=== PATIENT | male | born 1970 | race Caucasian/White ===

== ENCOUNTER 2018-08-16 01:20 | Inpatient (IN) | payer MEDICAID, OTHER ==
[~2018-08-16] VITALS: Ht 193 cm; Wt 117.2 kg
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
--- NOTE | 2018-08-16 01:42 | NUR ---
PT. WAS TOLD BY SECURITY THAT HE NEEDS TO EITHER GET HIS STUFF AND LEAVE OR GO BACK TO THE ROOM. PT. AMBULATORY BACK TO ED ROOM 38. PT. STATES "YOU ALL BETTER KNOW WHO YOU'RE TALKING TO, I CAME HERE FOR SOME RESPECT." PT. SITTING ON GURNEY NOW AWAITING PROVIDER AUNDREA.
--- NOTE | 2018-08-16 01:48 | NUR ---
DONI YUSUF IN TO EVAL PT. AND DISCUSS POC.
--- NOTE | 2018-08-16 02:13 | NUR ---
US AT FOR IMAGING. PT. CALLED RN INTO ROOM AND STATES "YOU NEED TO BRING ME A TELEPHONE IMMEDIATLY, IT'S IMPORTANT!" RN INFROMED PT. THAT THERE IS NO PHONE TO BRING INTO ROOM. PT. REPORTS HE WILL WAIT UNITL IMAGING COMPLETED AND USE PHONE IN [place]. ROSE.
[2018-08-16 02:17] LABS: BASOPHILS % (AUTO) 1 % (0-1); EOSINOPHILS # (AUTO) 0.14 x10^3/uL (0-0.4); EOSINOPHILS % (AUTO) 1 % (1-7); LYMPHOCYTES # (AUTO) 1.97 x10^3/uL (1-3.4); LYMPHOCYTES % (AUTO) 11 % (22-44); MD NO; MEAN CORPUSCULAR HEMOGLOBIN 31.4 pg (27.5-34.5); MEAN CORPUSCULAR HGB CONC 34.3 g/dL (33.2-36.2); MEAN CORPUSCULAR VOLUME 91.4 fL (81-97); MEAN PLATELET VOLUME 7.8 fL (7.4-10.4); MONOCYTES # (AUTO) 1.23 x10^3/uL (0.2-0.8); MONOCYTES % (AUTO) 7 % (2-9); NEUTROPHILS # (AUTO) 14.46 x10^3/uL (1.8-6.8); NEUTROPHILS % (AUTO) 81 % (42-75); PLATELET COUNT 273 x10^3/uL (130-400); RED BLOOD COUNT 5.11 x10^6/uL (4.38-5.82); RED CELL DISTRIBUTION WIDTH 12.7 % (9.4-14.8)
[2018-08-16 02:20] LABS: HCT (SEDRATE) 46.7 % (39.2-51.8)
[2018-08-16 02:28] LABS: ALBUMIN 4.2 g/dL (3.4-5.0); ANION GAP 7 mmol/L (5-15); CALCIUM 8.9 mg/dL (8.5-10.1); CHLORIDE 107 mmol/L (98-107)
--- NOTE | 2018-08-16 02:29 | NUR ---
PT. USING PHONE IN [place]. NADN. AMBULATES WITH STEADY GAIT.
[2018-08-16 02:32] LABS: ALANINE AMINOTRANSFERASE 26 U/L (12-78); ALKALINE PHOSPHATASE 72 U/L (45-117); BILIRUBIN,TOTAL 1.5 mg/dL (0.2-1.0); TOTAL PROTEIN 7.4 g/dL (6.4-8.2)
--- NOTE | 2018-08-16 02:41 | NUR ---
PT. PROVIDED WITH WATER PER REQUEST AND AFTER OK FROM DONI YUSUF. PT. BACK DOWN THE [place] TO USE PHONE.
[2018-08-16] MEDS ORDERED: AMPICILLIN/SULBACTAM 3 GM in SODIUM CHLORIDE 0.9% 100 ML IV ONE (03:00)
--- NOTE | 2018-08-16 03:00 | NUR ---
REQUESTED PT. TO RETURN TO ROOM FOR VS CHECK. DR. NEVAREZ IN TO EVAL PT. AND DISCUSS POC.
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
[2018-08-16] MEDS ORDERED: SODIUM CHLORIDE 0.9% 1,000ML IVBOLUS ONE (03:30)
--- NOTE | 2018-08-16 03:39 | NUR ---
PT. BACK TO ROOM AND ALLOWED THIS RN TO HANG MEDS ORDERED. PT. STATES "I AM VERY SORRY FOR THAT BUT I HAD TO CALL THE [employer] AND LET THEM KNOW MY PHONE WAS STOLEN AND TRUST ME THEY ARE GOING TO BE ON THE HERNANDEZ BECAUSE THERE IS STUFF IN THAT PHONE THAT WOULD BE DANGEROUS IF IN THE WRONG HANDS. BUT I AM BETTER NOW KNOWING THAT THEY ARE SEARHING FOR IT AND I PROMISE TO STAY IN MY ROOM NOW." MORE WATER PROVIDED PER REQUEST. ATTEMPTING TO CALL REPORT TO FLOOR NOW.
[2018-08-16 04:26] VITALS: BP 105/61
[2018-08-16] MEDS ORDERED: SODIUM CHLORIDE 0.9% 1,000 ML IV SCH (06:19)
[2018-08-16] MEDS ORDERED: ACETAMINOPHEN 325 MG TABLET PO PRN (06:30)
[2018-08-16] MEDS ORDERED: PHARMACOKINETIC CONSULTATION MC ONE (06:30)
[2018-08-16] MEDS ORDERED: HEPARIN 5,000 UNITS/ML, 1ML SQ SCH (06:30)
[2018-08-16] MEDS ORDERED: hydrALAzine 20 MG/ML, 1ML IVPush PRN (06:30)
[2018-08-16] MEDS ORDERED: ONDANSETRON ODT 4 MG PO PRN (06:30)
[2018-08-16] MEDS ORDERED: morphine SULFATE 10 MG/ML, 1ML IVPush PRN (06:30)
[2018-08-16] MEDS ORDERED: VANCOMYCIN 2,000 MG in SODIUM CHLORIDE 0.9% 500 ML IV SCH (06:30)
[2018-08-16] MEDS ORDERED: POLYETHYLENE GLYCOL 17 GM PACKET PO PRN (06:30)
[2018-08-16] MEDS ORDERED: BISACODYL 10 MG SUPP PR PRN (06:30)
[2018-08-16] MEDS ORDERED: PROMETHAZINE 25 MG/ML, 1ML IM PRN (06:30)
[2018-08-16] MEDS ORDERED: VANCOMYCIN PER PHARMACY MC PRN (06:30)
[2018-08-16] MEDS ORDERED: DOCUSATE 100 MG CAPSULE PO PRN (06:30)
[2018-08-16] MEDS ORDERED: VANCOMYCIN PMX 1GM/200ML 200 ML IV ONE (06:30)
[2018-08-16] MEDS ORDERED: NICOTINE 7 MG/24 HR PATCH.TD24 TD SCH (06:30)
[2018-08-16] MEDS ORDERED: ONDANSETRON 2MG/ML, 2ML IVPush PRN (06:30)
[2018-08-16] MEDS ORDERED: PHARMACOKINETIC MONITORING MC PRN (07:00)
[2018-08-16 07:20] LABS: FREE T4 (FREE THYROXINE) 1.17 ng/dL (0.76-1.46); THYROID STIMULATING HORMONE 1.38 mIU/L (0.358-3.740)
[2018-08-16 07:29] LABS: HEMOGLOBIN A1C 5.6 % (4.2-6.3)
[2018-08-16] MEDS: OXYcodone IR 5MG TABLET PO PRN ×2 (07:41→12:42)
[2018-08-16] MEDS ORDERED: AMPICILLIN/SULBACTAM 3 GM in SODIUM CHLORIDE 0.9% 100 ML IV SCH (09:00)
[2018-08-16] MEDS ORDERED: LACTATED RINGERS 1,000 ML IV SCH (10:30)
[2018-08-16] MEDS ORDERED: GADOBUTROL 10 MMOL/10 ML PFS ONE (12:23)
[2018-08-16] MEDS ORDERED: NICOTINE 14MG/24 HR PATCH.TD24 TD SCH (13:00)
[2018-08-16 15:17] VITALS: BP 121/67
[2018-08-16] MEDS ORDERED: HYDR-3307 PO (20:05)
== END 2018-08-16 16:48 | disposition left against medical advice (07) | DRG 871 ==
LOC: ED 03:00 → EDIP 03:04 → 3NE 04:23
PROVIDERS: ADMIT Internal Medicine; ATTEND Internal Medicine
DX: A41.9 Sepsis, unspecified organism (principal); N17.0 Acute kidney failure with tubular necrosis; L03.115 Cellulitis of right lower limb; L03.116 Cellulitis of left lower limb; M00.9 Pyogenic arthritis, unspecified; R17 Unspecified jaundice; E66.9 Obesity, unspecified; E78.00 Pure hypercholesterolemia, unspecified; F31.9 Bipolar disorder, unspecified; F17.210 Nicotine dependence, cigarettes, uncomplicated; Z83.3 Family history of diabetes mellitus; Z68.31 Body mass index [BMI] 31.0-31.9, adult
CPT/HCPCS: 36415; 80053; 83036; 83605; 83735; 84145; 84439; 84443; 85025; 85651; 86140; 87040; 96374; A9585; G0378; J0295; J3370; J7030; J7040; J7120

== ENCOUNTER 2018-08-16 18:10 | Inpatient (IN) | payer MEDICAID, OTHER ==
[~2018-08-16] VITALS: Ht 193 cm; Wt 126.0 kg
[2018-08-16] MEDS ORDERED: HYDR-3307 PO (20:05)
--- NOTE | 2018-08-16 21:20 | NUR ---
BS REPORT OF PT FROM LATANYA VERONICA AND ASSUMING CARE OF PT AT THIS TIME.
--- NOTE | 2018-08-16 21:54 | NUR ---
PT GETTING INCREASINGLY AGITATED AND RUDE TO STAFF. PT THREATENING TO LEAVE "IF WE DON'T GET HIM UPSTAIRS IMMEDIATELY". PT EDUCATED ON ER PROCESS, BUT CONTINUES TO GET VERBALLY ABUSIVE WITH STAFF.
[2018-08-16] MEDS ORDERED: DOCUSATE 100 MG CAPSULE PO PRN (22:30)
[2018-08-16] MEDS ORDERED: ACETAMINOPHEN 325 MG TABLET PO PRN (22:30)
[2018-08-16] MEDS ORDERED: HYDROcodone/APAP 5/325 TABLET PO PRN (22:30)
[2018-08-16] MEDS ORDERED: morphine SULFATE 10 MG/ML, 1ML IVPush PRN (22:30)
[2018-08-16] MEDS ORDERED: ONDANSETRON 2MG/ML, 2ML IVPush PRN (22:30)
[2018-08-16] MEDS ORDERED: BISACODYL 10 MG SUPP PR PRN (22:30)
[2018-08-16] MEDS ORDERED: ENOXAPARIN 40 MG/0.4 ML SQ SCH (22:30)
[2018-08-16] MEDS ORDERED: VANCOMYCIN PMX 1GM/200ML 200 ML IV ONE (22:30)
[2018-08-16] MEDS ORDERED: PROMETHAZINE 25 MG/ML, 1ML IM PRN (22:30)
[2018-08-16] MEDS ORDERED: hydrALAzine 20 MG/ML, 1ML IVPush PRN (22:30)
[2018-08-16] MEDS ORDERED: ONDANSETRON ODT 4 MG PO PRN (22:30)
[2018-08-16] MEDS ORDERED: POLYETHYLENE GLYCOL 17 GM PACKET PO PRN (22:30)
[2018-08-16] MEDS ORDERED: VANCOMYCIN PER PHARMACY MC PRN (22:30)
[2018-08-16 22:48] VITALS: BP 130/88
[2018-08-16] MEDS: CALCIUM CARBONATE 500 MG TAB.CHEW PO PRN (22:48)
[2018-08-16] MEDS: HYDROcodone/APAP 10/325 MG TABLET PO PRN (22:48)
[2018-08-16] MEDS ORDERED: NICOTINE 7 MG/24 HR PATCH.TD24 TD SCH (23:00)
[2018-08-16] MEDS ORDERED: SODIUM CHLORIDE 0.9% 1,000 ML IV SCH (23:00)
[2018-08-16] MEDS ORDERED: PHARMACOKINETIC MONITORING MC PRN (23:00)
[2018-08-16] MEDS: AMPICILLIN/SULBACTAM 3 GM in SODIUM CHLORIDE 0.9% 100 ML IV SCH (23:18)
[2018-08-17] MEDS ORDERED: VANCOMYCIN 2,500 MG in SODIUM CHLORIDE 0.9% 500 ML IV ONE
[2018-08-17] MEDS ORDERED: TEMAZEPAM 15 MG CAPSULE PO PRN (00:30)
[2018-08-17] MEDS: CALCIUM CARBONATE 500 MG TAB.CHEW PO PRN ×2 (04:19→06:35)
[2018-08-17] MEDS: AMPICILLIN/SULBACTAM 3 GM in SODIUM CHLORIDE 0.9% 100 ML IV SCH (04:52)
[2018-08-17 06:01] LABS: BASOPHILS # (AUTO) 0.03 x10^3/uL (0-0.1); BASOPHILS % (AUTO) 0 % (0-1); EOSINOPHILS # (AUTO) 0.28 x10^3/uL (0-0.4); EOSINOPHILS % (AUTO) 3 % (1-7); LYMPHOCYTES # (AUTO) 1.54 x10^3/uL (1-3.4); LYMPHOCYTES % (AUTO) 17 % (22-44); MD NO; MEAN CORPUSCULAR HEMOGLOBIN 31.6 pg (27.5-34.5); MEAN CORPUSCULAR HGB CONC 34.4 g/dL (33.2-36.2); MEAN CORPUSCULAR VOLUME 92.1 fL (81-97); MEAN PLATELET VOLUME 7.9 fL (7.4-10.4); MONOCYTES # (AUTO) 1.19 x10^3/uL (0.2-0.8); MONOCYTES % (AUTO) 13 % (2-9); NEUTROPHILS % (AUTO) 66 % (42-75); PLATELET COUNT 199 x10^3/uL (130-400); RED BLOOD COUNT 4.16 x10^6/uL (4.38-5.82); RED CELL DISTRIBUTION WIDTH 12.8 % (9.4-14.8)
[2018-08-17 06:08] LABS: CHLORIDE 109 mmol/L (98-107)
[2018-08-17 06:16] LABS: ALANINE AMINOTRANSFERASE 22 U/L (12-78); ALKALINE PHOSPHATASE 54 U/L (45-117); ANION GAP 7 mmol/L (5-15); BILIRUBIN,TOTAL 0.5 mg/dL (0.2-1.0); CALCIUM 7.9 mg/dL (8.5-10.1); CHOL/HDL RATIO 2.9; CHOLESTEROL, TOTAL 132 mg/dL (140-239); CREATININE 1.12 mg/dL (0.7-1.3); HDL CHOL % 34 % (26-37); HDL CHOLESTEROL (DIRECT) 45 mg/dL (40-60); LDL CHOLESTEROL,CALCULATED 66 mg/dL (54-169); LDL/HDL RATIO 1.5 (0.5-3.0); TOTAL PROTEIN 5.8 g/dL (6.4-8.2); TRIGLYCERIDES 105 mg/dL (50-200); VLDL CHOLESTEROL 21 mg/dL (0-25)
[2018-08-17] MEDS: HYDROcodone/APAP 10/325 MG TABLET PO PRN (06:35)
== END 2018-08-17 09:00 | disposition left against medical advice (07) | DRG 871 ==
LOC: ED 19:55 → EDIP 20:02 → ED 20:06 → 3NE 22:18
PROVIDERS: ADMIT Internal Medicine; ATTEND Internal Medicine
DX: A41.9 Sepsis, unspecified organism (principal); N17.0 Acute kidney failure with tubular necrosis; L03.115 Cellulitis of right lower limb; L03.116 Cellulitis of left lower limb; B95.8 Unspecified staphylococcus as the cause of diseases classified elsewhere; F12.90 Cannabis use, unspecified, uncomplicated; F29 Unspecified psychosis not due to a substance or known physiological condition; Z53.21 Procedure and treatment not carried out due to patient leaving prior to being seen by health care provider; F17.210 Nicotine dependence, cigarettes, uncomplicated; Z83.3 Family history of diabetes mellitus; Z91.19 Patient's noncompliance with other medical treatment and regimen
CPT/HCPCS: 36415; 80053; 80061; 83735; 85025; 99285; G0378; J0295; J1650; J3370; J7030; J7040

== ENCOUNTER 2018-08-17 10:38 | Inpatient (IN) | payer MEDICAID ==
[~2018-08-17] VITALS: Ht 193 cm; Wt 121.0 kg
[~2018-08-17 10:38] MED LIST: HYDR-3307 PO
--- NOTE | 2018-08-17 12:34 | NUR ---
EDUCATION AND TRAINING COORDINATOR: PT TO ROOM FROM GABE DUGAN
[2018-08-17] MEDS ORDERED: SODIUM CHLORIDE FLUSH 10ML SYR IVF ONE (13:00)
--- NOTE | 2018-08-17 13:14 | NUR ---
PT MAKING DEROGATORY REMARKS TO RN WHILE HAVING IV STARTED.
[2018-08-17 13:18] LABS: BASOPHILS # (AUTO) 0.03 x10^3/uL (0-0.1); BASOPHILS % (AUTO) 0 % (0-1); EOSINOPHILS # (AUTO) 0.34 x10^3/uL (0-0.4); EOSINOPHILS % (AUTO) 3 % (1-7); LYMPHOCYTES # (AUTO) 1.56 x10^3/uL (1-3.4); LYMPHOCYTES % (AUTO) 14 % (22-44); MD NO; MEAN CORPUSCULAR HEMOGLOBIN 31.6 pg (27.5-34.5); MEAN CORPUSCULAR HGB CONC 34.3 g/dL (33.2-36.2); MEAN CORPUSCULAR VOLUME 92.1 fL (81-97); MEAN PLATELET VOLUME 7.9 fL (7.4-10.4); MONOCYTES # (AUTO) 0.99 x10^3/uL (0.2-0.8); MONOCYTES % (AUTO) 9 % (2-9); NEUTROPHILS # (AUTO) 8.39 x10^3/uL (1.8-6.8); NEUTROPHILS % (AUTO) 74 % (42-75); PLATELET COUNT 216 x10^3/uL (130-400); RED BLOOD COUNT 4.34 x10^6/uL (4.38-5.82); RED CELL DISTRIBUTION WIDTH 12.7 % (9.4-14.8)
[2018-08-17 13:25] LABS: ALBUMIN 3.6 g/dL (3.4-5.0); ANION GAP 6 mmol/L (5-15); CALCIUM 8.3 mg/dL (8.5-10.1); CHLORIDE 109 mmol/L (98-107); CREATININE 1.11 mg/dL (0.7-1.3)
--- NOTE | 2018-08-17 13:32 | NUR ---
I am assuming care of this pt from shea (RN) at this time. verbal sbar was exchanged at the bedside.
--- NOTE | 2018-08-17 14:00 | NUR ---
AWAITING MEALTRAY WITH NO ACUTE CHANGES NOTED AT THIS TIME.
[2018-08-17] MEDS ORDERED: SODIUM CHLORIDE FLUSH 10ML SYR IVF PRN (14:30)
[2018-08-17] MEDS ORDERED: VANCOMYCIN PER PHARMACY MC PRN (15:00)
[2018-08-17] MEDS ORDERED: ONDANSETRON 2MG/ML, 2ML IVPush PRN (15:00)
[2018-08-17] MEDS ORDERED: LACTATED RINGERS 1,000 ML IV SCH (15:00)
[2018-08-17] MEDS ORDERED: hydrALAzine 20 MG/ML, 1ML IVPush PRN (15:00)
[2018-08-17] MEDS ORDERED: LABETALOL 5MG/ML, 20ML IVPush PRN (15:00)
[2018-08-17] MEDS ORDERED: ACETAMINOPHEN 325 MG TABLET PO PRN (15:00)
[2018-08-17] MEDS ORDERED: morphine SULFATE 10 MG/ML, 1ML IVPush PRN (15:00)
[2018-08-17] MEDS: HEPARIN 5,000 UNITS/ML, 1ML SQ SCH ×2 (15:00→23:00)
--- NOTE | 2018-08-17 15:02 | NUR ---
Bedside SBAR report received from RNJeffery. Pt is upset that his food has not been delivered, pt ambulated out of room to bathroom, and as we was walking he was advised that this RN will call the diet office regarding his food tray.
--- NOTE | 2018-08-17 15:06 | NUR ---
MAIRA (rn) IS ASSUMING CARE OF THIS PT AT THIS TIME. SBAR REPORT WAS EXCHANGED AT THE BEDSIDE.
--- NOTE | 2018-08-17 15:17 | NUR ---
Meal tray provided to pt, pt responded "No way, you guys accomplished something here. Well done." Pt made aware of new room assignment.
--- NOTE | 2018-08-17 15:27 | NUR ---
Telephone SBAR report given to RNTheodore.
[2018-08-17] MEDS: NICOTINE 7 MG/24 HR PATCH.TD24 TD SCH (15:30)
[2018-08-17] MEDS ORDERED: PHARMACOKINETIC CONSULTATION MC ONE (16:30)
[2018-08-17] MEDS ORDERED: PHARMACOKINETIC MONITORING MC PRN (16:30)
[2018-08-17 16:37] VITALS: BP 100/80
[2018-08-17] MEDS: SODIUM CHLORIDE 0.9% 1,000 ML IV SCH ×2 (17:30→18:08)
[2018-08-17] MEDS: AMPICILLIN/SULBACTAM 1,500 MG in SODIUM CHLORIDE 0.9% 50 ML IV SCH (18:12)
[2018-08-17] MEDS: HYDROcodone/APAP 5/325 TABLET PO PRN ×2 (18:21→22:47)
[2018-08-17] MEDS: VANCOMYCIN 2,000 MG in SODIUM CHLORIDE 0.9% 500 ML IV SCH (19:44)
[2018-08-17 19:54] VITALS: BP 101/66
[2018-08-17] MEDS: CALCIUM CARBONATE 500 MG TAB.CHEW PO PRN (22:47)
[2018-08-18] MEDS: AMPICILLIN/SULBACTAM 1,500 MG in SODIUM CHLORIDE 0.9% 50 ML IV SCH (01:26)
[2018-08-18] MEDS: SODIUM CHLORIDE 0.9% 1,000 ML IV SCH ×3 (01:27→09:16)
[2018-08-18] MEDS: HYDROcodone/APAP 5/325 TABLET PO PRN ×4 (04:15→21:30)
[2018-08-18] MEDS: CALCIUM CARBONATE 500 MG TAB.CHEW PO PRN ×2 (04:15→23:41)
[2018-08-18 04:43] LABS: BASOPHILS # (AUTO) 0.03 x10^3/uL (0-0.1); BASOPHILS % (AUTO) 1 % (0-1); EOSINOPHILS # (AUTO) 0.39 x10^3/uL (0-0.4); EOSINOPHILS % (AUTO) 5 % (1-7); LYMPHOCYTES # (AUTO) 2.09 x10^3/uL (1-3.4); LYMPHOCYTES % (AUTO) 28 % (22-44); MD NO; MEAN CORPUSCULAR HEMOGLOBIN 31.5 pg (27.5-34.5); MEAN CORPUSCULAR HGB CONC 34.2 g/dL (33.2-36.2); MEAN CORPUSCULAR VOLUME 92.2 fL (81-97); MEAN PLATELET VOLUME 7.9 fL (7.4-10.4); MONOCYTES # (AUTO) 0.94 x10^3/uL (0.2-0.8); MONOCYTES % (AUTO) 13 % (2-9); NEUTROPHILS # (AUTO) 3.95 x10^3/uL (1.8-6.8); NEUTROPHILS % (AUTO) 53 % (42-75); PLATELET COUNT 211 x10^3/uL (130-400); RED BLOOD COUNT 4.22 x10^6/uL (4.38-5.82); RED CELL DISTRIBUTION WIDTH 12.6 % (9.4-14.8)
[2018-08-18 04:51] LABS: CHLORIDE 112 mmol/L (98-107)
[2018-08-18 05:01] LABS: ALANINE AMINOTRANSFERASE 31 U/L (12-78); ALKALINE PHOSPHATASE 56 U/L (45-117); ANION GAP 2 mmol/L (5-15); BILIRUBIN,TOTAL 0.6 mg/dL (0.2-1.0); CALCIUM 8.2 mg/dL (8.5-10.1); CREATININE 0.96 mg/dL (0.7-1.3); TOTAL PROTEIN 5.8 g/dL (6.4-8.2)
[2018-08-18 08:52] VITALS: BP 106/70
[2018-08-18] MEDS: VANCOMYCIN 2,000 MG in SODIUM CHLORIDE 0.9% 500 ML IV SCH ×2 (09:15→20:01)
[2018-08-18] MEDS: HEPARIN 5,000 UNITS/ML, 1ML SQ SCH ×3 (09:15→23:00)
[2018-08-18] MEDS: AMPICILLIN/SULBACTAM 1,500 MG in SODIUM CHLORIDE 0.9% 100 ML IV SCH ×2 (15:37→22:25)
[2018-08-18] MEDS: NICOTINE 7 MG/24 HR PATCH.TD24 TD SCH (15:37)
[2018-08-18 15:47] VITALS: BP 128/83
[2018-08-18] MEDS: FUROSEMIDE 20 MG TABLET PO SCH (17:23)
[2018-08-18 17:29] VITALS: BP 144/90
[2018-08-18 21:12] VITALS: BP 123/71
[2018-08-19] MEDS: HYDROcodone/APAP 5/325 TABLET PO PRN ×3 (01:38→20:58)
[2018-08-19] MEDS: CALCIUM CARBONATE 500 MG TAB.CHEW PO PRN ×2 (01:46→20:59)
[2018-08-19 02:38] VITALS: BP 110/70
[2018-08-19 04:35] LABS: BASOPHILS # (AUTO) 0.05 x10^3/uL (0-0.1); BASOPHILS % (AUTO) 1 % (0-1); EOSINOPHILS # (AUTO) 0.41 x10^3/uL (0-0.4); EOSINOPHILS % (AUTO) 6 % (1-7); LYMPHOCYTES # (AUTO) 1.87 x10^3/uL (1-3.4); LYMPHOCYTES % (AUTO) 27 % (22-44); MD NO; MEAN CORPUSCULAR HEMOGLOBIN 31.3 pg (27.5-34.5); MEAN CORPUSCULAR HGB CONC 33.2 g/dL (33.2-36.2); MEAN CORPUSCULAR VOLUME 94.3 fL (81-97); MEAN PLATELET VOLUME 7.8 fL (7.4-10.4); MONOCYTES % (AUTO) 10 % (2-9); NEUTROPHILS # (AUTO) 3.89 x10^3/uL (1.8-6.8); NEUTROPHILS % (AUTO) 56 % (42-75); PLATELET COUNT 247 x10^3/uL (130-400); RED BLOOD COUNT 4.36 x10^6/uL (4.38-5.82); RED CELL DISTRIBUTION WIDTH 12.4 % (9.4-14.8)
[2018-08-19] MEDS: AMPICILLIN/SULBACTAM 1,500 MG in SODIUM CHLORIDE 0.9% 100 ML IV SCH (04:48)
[2018-08-19 07:10] VITALS: BP 102/60
[2018-08-19] MEDS: ENOXAPARIN 40 MG/0.4 ML SQ SCH (07:30)
[2018-08-19] MEDS: FUROSEMIDE 20 MG TABLET PO SCH ×2 (08:29→16:52)
[2018-08-19] MEDS: VANCOMYCIN 2,000 MG in SODIUM CHLORIDE 0.9% 500 ML IV SCH ×2 (08:29→20:58)
[2018-08-19] MEDS: AMPICILLIN/SULBACTAM 1,500 MG in SODIUM CHLORIDE 0.9% 50 ML IV SCH ×2 (11:39→18:12)
[2018-08-19 14:40] VITALS: BP 121/79
[2018-08-19] MEDS: NICOTINE 7 MG/24 HR PATCH.TD24 TD SCH (15:30)
[2018-08-19] MEDS: OMEPRAZOLE 20 MG CAPSULE.DR PO SCH (16:52)
[2018-08-19 21:02] VITALS: BP 118/79
[2018-08-20 00:52] VITALS: BP 107/69
[2018-08-20] MEDS: CALCIUM CARBONATE 500 MG TAB.CHEW PO PRN ×2 (00:55→09:10)
[2018-08-20] MEDS: HYDROcodone/APAP 5/325 TABLET PO PRN ×5 (00:55→21:06)
[2018-08-20] MEDS: AMPICILLIN/SULBACTAM 1,500 MG in SODIUM CHLORIDE 0.9% 50 ML IV SCH ×4 (00:59→17:26)
[2018-08-20 05:18] LABS: BASOPHILS # (AUTO) 0.06 x10^3/uL (0-0.1); BASOPHILS % (AUTO) 1 % (0-1); EOSINOPHILS % (AUTO) 8 % (1-7); LYMPHOCYTES # (AUTO) 1.76 x10^3/uL (1-3.4); LYMPHOCYTES % (AUTO) 27 % (22-44); MD NO; MEAN CORPUSCULAR HEMOGLOBIN 31.5 pg (27.5-34.5); MEAN CORPUSCULAR HGB CONC 33.4 g/dL (33.2-36.2); MEAN CORPUSCULAR VOLUME 94.1 fL (81-97); MEAN PLATELET VOLUME 7.5 fL (7.4-10.4); MONOCYTES # (AUTO) 0.66 x10^3/uL (0.2-0.8); MONOCYTES % (AUTO) 10 % (2-9); NEUTROPHILS # (AUTO) 3.66 x10^3/uL (1.8-6.8); NEUTROPHILS % (AUTO) 55 % (42-75); PLATELET COUNT 301 x10^3/uL (130-400); RED BLOOD COUNT 4.92 x10^6/uL (4.38-5.82); RED CELL DISTRIBUTION WIDTH 12.6 % (9.4-14.8)
[2018-08-20] MEDS: OMEPRAZOLE 20 MG CAPSULE.DR PO SCH ×2 (06:18→17:27)
[2018-08-20] MEDS: ENOXAPARIN 40 MG/0.4 ML SQ SCH (07:33)
[2018-08-20 08:32] VITALS: BP 118/75
[2018-08-20] MEDS: FUROSEMIDE 20 MG TABLET PO SCH ×2 (09:10→17:27)
[2018-08-20] MEDS: VANCOMYCIN 2,000 MG in SODIUM CHLORIDE 0.9% 500 ML IV SCH ×2 (09:10→21:06)
[2018-08-20] MEDS: NICOTINE 7 MG/24 HR PATCH.TD24 TD SCH (14:00)
[2018-08-20 14:12] LABS: ALANINE AMINOTRANSFERASE 32 U/L (12-78); ALBUMIN 3.1 g/dL (3.4-5.0); ANION GAP 10 mmol/L (5-15); CALCIUM 8.8 mg/dL (8.5-10.1); CHLORIDE 107 mmol/L (98-107); CREATININE 1.06 mg/dL (0.7-1.3)
[2018-08-20 14:14] LABS: ALKALINE PHOSPHATASE 63 U/L (45-117); BILIRUBIN,TOTAL 0.1 mg/dL (0.2-1.0); TOTAL PROTEIN 6.5 g/dL (6.4-8.2)
[2018-08-20 14:55] VITALS: BP 118/77
[2018-08-20 19:06] VITALS: BP 114/69
[2018-08-21] MEDS: AMPICILLIN/SULBACTAM 1,500 MG in SODIUM CHLORIDE 0.9% 50 ML IV SCH ×3 (00:04→11:39)
[2018-08-21] MEDS: HYDROcodone/APAP 5/325 TABLET PO PRN ×3 (01:38→10:10)
[2018-08-21 01:40] VITALS: BP 119/76
[2018-08-21 04:53] LABS: BASOPHILS # (AUTO) 0.06 x10^3/uL (0-0.1); BASOPHILS % (AUTO) 1 % (0-1); EOSINOPHILS # (AUTO) 0.41 x10^3/uL (0-0.4); EOSINOPHILS % (AUTO) 6 % (1-7); LYMPHOCYTES # (AUTO) 1.51 x10^3/uL (1-3.4); LYMPHOCYTES % (AUTO) 23 % (22-44); MD NO; MEAN CORPUSCULAR HEMOGLOBIN 31.5 pg (27.5-34.5); MEAN CORPUSCULAR HGB CONC 33.5 g/dL (33.2-36.2); MEAN PLATELET VOLUME 7.1 fL (7.4-10.4); MONOCYTES # (AUTO) 0.46 x10^3/uL (0.2-0.8); MONOCYTES % (AUTO) 7 % (2-9); NEUTROPHILS # (AUTO) 4.15 x10^3/uL (1.8-6.8); NEUTROPHILS % (AUTO) 63 % (42-75); PLATELET COUNT 322 x10^3/uL (130-400); RED BLOOD COUNT 5.09 x10^6/uL (4.38-5.82); RED CELL DISTRIBUTION WIDTH 12.7 % (9.4-14.8)
[2018-08-21 05:04] LABS: ALBUMIN 3.2 g/dL (3.4-5.0); ANION GAP 5 mmol/L (5-15); CALCIUM 8.8 mg/dL (8.5-10.1); CHLORIDE 106 mmol/L (98-107)
[2018-08-21 05:09] LABS: ALANINE AMINOTRANSFERASE 42 U/L (12-78); ALKALINE PHOSPHATASE 60 U/L (45-117); BILIRUBIN,TOTAL 0.2 mg/dL (0.2-1.0); CREATININE 1.19 mg/dL (0.7-1.3); TOTAL PROTEIN 6.6 g/dL (6.4-8.2)
[2018-08-21] MEDS: OMEPRAZOLE 20 MG CAPSULE.DR PO SCH (05:48)
[2018-08-21] MEDS: ENOXAPARIN 40 MG/0.4 ML SQ SCH (07:30)
[2018-08-21] MEDS: VANCOMYCIN 2,000 MG in SODIUM CHLORIDE 0.9% 500 ML IV SCH (07:48)
[2018-08-21] MEDS: FUROSEMIDE 20 MG TABLET PO SCH (07:48)
[2018-08-21 07:50] VITALS: BP 122/77
[2018-08-21] MEDS ORDERED: DOXY100C2 PO (10:13)
[2018-08-21] MEDS ORDERED: OMEP-110 PO (10:13)
[2018-08-21] MEDS ORDERED: AMOX1TAB64 PO (10:13)
[2018-08-21] MEDS ORDERED: FURO20TA3 PO (10:13)
[2018-08-21] MEDS ORDERED: POTA10TA5 PO (10:14)
== END 2018-08-21 13:59 | disposition home or self-care (01) | DRG 872 ==
LOC: ED 12:43 → EDIP 14:22 → 3NW 16:02
PROVIDERS: ADMIT Internal Medicine; ATTEND Internal Medicine
DX: A41.9 Sepsis, unspecified organism (principal); E87.2 Acidosis; L03.116 Cellulitis of left lower limb; E66.9 Obesity, unspecified; E78.00 Pure hypercholesterolemia, unspecified; E83.52 Hypercalcemia; F17.210 Nicotine dependence, cigarettes, uncomplicated; K21.9 Gastro-esophageal reflux disease without esophagitis; R65.20 Severe sepsis without septic shock; Z83.3 Family history of diabetes mellitus; Z68.32 Body mass index [BMI] 32.0-32.9, adult; Z71.6 Tobacco abuse counseling; Z91.14 Patient's other noncompliance with medication regimen
CPT/HCPCS: 36415; 80048; 80053; 80202; 82040; 83605; 85025; 87040; 99285; G0378; J3370; J0295; J7030; J7040

== ENCOUNTER 2018-09-24 11:40 | Emergency (ER) | payer MEDICAID ==
[~2018-09-24] VITALS: Ht 193 cm; Wt 121.9 kg
[~2018-09-24 11:40] MED LIST changes: +AMOX1TAB64 PO; +DOXY100C2 PO; +FURO20TA3 PO; +OMEP-110 PO; +POTA10TA5 PO
[2018-09-24 11:55] VITALS: BP 109/82
--- NOTE | 2018-09-24 13:04 | NUR ---
PT TO ROOM FROM LOBBY,GAIT STEADY
[2018-09-24] MEDS ORDERED: DIPH,PERTUSS(ACELL),TET VAC/PF 0.5 ML IM-VACC ONE ×2 (13:30→14:29)
[2018-09-24] MEDS ORDERED: LIDOCAINE-MPF 1%, 5ML ONE (14:36)
[2018-09-24] MEDS ORDERED: LIDOCAINE-MPF 1%, 5ML INFIL ONE (15:00)
== END 2018-09-24 14:57 | disposition home or self-care (01) ==
LOC: ED 14:10
DX: S91.115A Laceration without foreign body of left lesser toe(s) without damage to nail, initial encounter (principal); W25.XXXA Contact with sharp glass, initial encounter; Y93.89 Activity, other specified; Y92.512 Supermarket, store or market as the place of occurrence of the external cause; Y99.8 Other external cause status
CPT/HCPCS: 12001; 90471; 90715; 99283

== ENCOUNTER 2018-10-06 17:28 | Emergency (ER) | payer MEDICAID ==
[~2018-10-06] VITALS: Ht 193 cm; Wt 118.3 kg
--- NOTE | 2018-10-06 18:17 | NUR ---
NO ANSWER IN LOBBY.
[2018-10-06 18:26] VITALS: BP 147/97
== END 2018-10-06 18:44 | disposition home or self-care (01) ==
LOC: ED 18:30
DX: S91.114D Laceration without foreign body of right lesser toe(s) without damage to nail, subsequent encounter (principal); E78.00 Pure hypercholesterolemia, unspecified; X58.XXXD Exposure to other specified factors, subsequent encounter
CPT/HCPCS: 99281

== ENCOUNTER 2018-10-13 22:08 | Emergency (ER) | payer MEDICAID ==
[~2018-10-13] VITALS: Ht 193 cm; Wt 120.2 kg
[2018-10-13 22:11] VITALS: BP 157/97
== END 2018-10-13 22:48 | disposition home or self-care (01) ==
LOC: ED 22:28
DX: K02.9 Dental caries, unspecified (principal); E78.00 Pure hypercholesterolemia, unspecified
CPT/HCPCS: 99283

== ENCOUNTER 2019-03-09 03:40 | Emergency (ER) | payer MEDICAID ==
[~2019-03-09] VITALS: Ht 193 cm; Wt 117.9 kg
[~2019-03-09 03:40] MED LIST changes: -HYDR-3307 PO; +HYDR-36 PO
[2019-03-09] MEDS ORDERED: HYDROcodone/APAP 5/325 TABLET PO STA (03:58)
[2019-03-09] MEDS ORDERED: HYDROcodone/APAP 5/325 TABLET ONE (04:02)
[2019-03-09] MEDS ORDERED: ONDANSETRON ODT 4 MG PO ONE (05:00)
[2019-03-09] MEDS ORDERED: ONDANSETRON ODT 4 MG ONE (05:14)
[2019-03-09 05:19] VITALS: BP 122/83
[2019-03-09] MEDS ORDERED: FAMOTIDINE 20 MG TABLET ONE (05:29)
[2019-03-09] MEDS ORDERED: FAMOTIDINE 20 MG TABLET PO ONE (05:30)
== END 2019-03-09 05:48 | disposition home or self-care (01) ==
LOC: ED 03:51
DX: S20.211A Contusion of right front wall of thorax, initial encounter (principal); S50.01XA Contusion of right elbow, initial encounter; S09.90XA Unspecified injury of head, initial encounter; F17.200 Nicotine dependence, unspecified, uncomplicated; E78.00 Pure hypercholesterolemia, unspecified; Y04.0XXA Assault by unarmed brawl or fight, initial encounter; Y93.89 Activity, other specified; Y92.410 Unspecified street and highway as the place of occurrence of the external cause; Y99.8 Other external cause status
CPT/HCPCS: 70450; 70486; 71101; 73080; 99284; Q0162

== ENCOUNTER 2019-04-24 17:48 | Emergency (ER) | payer MEDICAID ==
[~2019-04-24] VITALS: Ht 193 cm; Wt 116.2 kg
[2019-04-24 17:57] VITALS: BP 136/110
== END 2019-04-24 19:04 | disposition home or self-care (01) ==
LOC: ED 18:55
DX: B34.9 Viral infection, unspecified (principal); E78.00 Pure hypercholesterolemia, unspecified; F17.200 Nicotine dependence, unspecified, uncomplicated
CPT/HCPCS: 71046; 99283

== ENCOUNTER 2019-12-08 06:46 | Emergency (ER) | payer MEDICAID ==
[~2019-12-08] VITALS: Ht 193 cm; Wt 118.0 kg
[~2019-12-08 06:46] MED LIST changes: +HYDR-3246 PO; -HYDR-36 PO
[2019-12-08 06:57] VITALS: BP 101/72
[2019-12-08] MEDS ORDERED: HYDROcodone/APAP 5/325 TABLET ONE (07:39)
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
[2019-12-08] MEDS ORDERED: HYDROcodone/APAP 5/325 TABLET PO ONE (08:00)
== END 2019-12-08 07:58 | disposition home or self-care (01) ==
LOC: ED 07:23
DX: S93.412A Sprain of calcaneofibular ligament of left ankle, initial encounter (principal); E78.00 Pure hypercholesterolemia, unspecified; V87.8XXA Person injured in other specified noncollision transport accidents involving motor vehicle (traffic), initial encounter; Y93.89 Activity, other specified; Y92.89 Other specified places as the place of occurrence of the external cause; Y99.8 Other external cause status
CPT/HCPCS: 99283

== ENCOUNTER 2019-12-18 18:38 | Emergency (ER) | payer MEDICAID ==
[~2019-12-18] VITALS: Ht 193 cm; Wt 117.3 kg
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
[2019-12-18 19:57] VITALS: BP 130/93
--- NOTE | 2019-12-18 20:37 | NUR ---
Patient/Caregiver given discharge instructions and they have confirmed that they understand the instructions. Patient ambulatory with steady gait.
--- NOTE | 2019-12-18 20:37 | NUR ---
Pt placed in aircast for comfort, ortho education provided by JACE Hayward.
== END 2019-12-18 20:49 | disposition home or self-care (01) ==
LOC: ED 19:55
DX: S93.432A Sprain of tibiofibular ligament of left ankle, initial encounter (principal); E78.00 Pure hypercholesterolemia, unspecified; F17.200 Nicotine dependence, unspecified, uncomplicated; X50.0XXA Overexertion from strenuous movement or load, initial encounter; Y93.89 Activity, other specified; Y92.410 Unspecified street and highway as the place of occurrence of the external cause; Y99.8 Other external cause status
CPT/HCPCS: 99283

== ENCOUNTER 2020-02-21 00:01 | Emergency (ER) | payer MEDICAID ==
[~2020-02-21] VITALS: Ht 193 cm; Wt 125.4 kg
[2020-02-21 00:04] VITALS: BP 124/81
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
--- NOTE | 2020-02-21 02:03 | NUR ---
PT ELBOW ANNEL WRAPPED. PT INSTRUCTED TO USE ICE, KEEP ELBOW WRAPPED AND ELEVATED. USE TYLENOL/IBUPROFEN NEEDED FOR PAIN. PT VERBALIZED UNDERSTANDING. AMBULATORY AT DISCHARGE.
== END 2020-02-21 02:05 | disposition home or self-care (01) ==
LOC: ED 01:21
DX: M70.21 Olecranon bursitis, right elbow (principal); M79.89 Other specified soft tissue disorders; R50.9 Fever, unspecified; E78.00 Pure hypercholesterolemia, unspecified; F17.200 Nicotine dependence, unspecified, uncomplicated; Y93.89 Activity, other specified
CPT/HCPCS: 99283

== ENCOUNTER 2020-04-20 01:34 | Emergency (ER) | payer MEDICAID ==
[~2020-04-20] VITALS: Ht 193 cm; Wt 127.1 kg
[~2020-04-20 01:34] MED LIST changes: -HYDR-3246 PO; +HYDR-3248 PO
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
[2020-04-20] MEDS ORDERED: BUPIVACAINE/PF-EPI 0.25% 1:200K SQ ONE (02:00)
[2020-04-20] MEDS ORDERED: LIDOCAINE-MPF 1%, 5ML INFIL ONE (02:00)
[2020-04-20] MEDS ORDERED: BUPIVACAINE 0.25% ONE (02:15)
[2020-04-20] MEDS ORDERED: PENICILLIN VK 500MG TABLET ONE (02:15)
[2020-04-20] MEDS ORDERED: LIDOCAINE-MPF 1%, 5ML ONE (02:15)
[2020-04-20 02:26] VITALS: BP 135/95
[2020-04-20] MEDS ORDERED: PENICILLIN VK 500MG TABLET PO ONE (02:30)
== END 2020-04-20 03:08 | disposition home or self-care (01) ==
LOC: ED 02:33
DX: K02.9 Dental caries, unspecified (principal); K08.89 Other specified disorders of teeth and supporting structures; R51.9 Headache, unspecified; E78.00 Pure hypercholesterolemia, unspecified; F17.210 Nicotine dependence, cigarettes, uncomplicated
CPT/HCPCS: 64400; 99284; 99406

== ENCOUNTER 2020-09-23 20:19 | Emergency (ER) | payer MEDICAID ==
--- NOTE | 2020-09-23 21:07 | NUR ---
NA X 1
--- NOTE | 2020-09-23 21:32 | NUR ---
PT CALLED FOR TRIAGE X 2
--- NOTE | 2020-09-23 21:47 | NUR ---
PT CALLED FOR TRIAGE. NA X 3
== END 2020-09-23 21:49 ==
LOC: ED 20:24
DX: R10.9 Unspecified abdominal pain (principal); Z53.21 Procedure and treatment not carried out due to patient leaving prior to being seen by health care provider